=== PATIENT | male | born 1975 | race Caucasian/White ===

== ENCOUNTER 2022-03-21 10:37 | Inpatient (IN) | payer OTHER ==
[2022-03-21 11:34] VITALS: BMI 20.6
[2022-03-21] MEDS ORDERED: MAG HYDROX/AL HYDROX/SIMETH 30 ML UNIT-DOSE CUP PO PRN (13:24)
[2022-03-21] MEDS ORDERED: MAGNESIUM CITRATE 300 ML BOTTLE PO PRN (13:24)
[2022-03-21] MEDS ORDERED: LOPERAMIDE HCL 2 MG CAPSULE PO PRN (13:24)
[2022-03-21] MEDS ORDERED: NALOXONE HCL (KLOXXADO) 8 MG SPRAY NS PRN (13:24)
[2022-03-21] MEDS ORDERED: ONDANSETRON *ODT* 4 MG TABLET SL PRN (13:24)
[2022-03-21] MEDS ORDERED: BISMUTH SUBSALICYLATE 262 MG/15 ML BTL PO PRN (13:24)
[2022-03-21] MEDS ORDERED: BENZOCAINE/MENTHOL (CHLORASEPTIC ) LOZENGE MM PRN (13:24)
[2022-03-21] MEDS ORDERED: IBUPROFEN 400 MG TABLET (FP) PO PRN (13:24)
[2022-03-21] MEDS ORDERED: ACETAMINOPHEN 325 MG TABLET (FP) PO PRN ×2 (13:24)
[2022-03-21] MEDS ORDERED: IBUPROFEN 600 MG TABLET (FP) PO PRN (13:24)
[2022-03-21] MEDS ORDERED: MAGNESIUM HYDROX 2400MG/30ML ORAL SUSPENSION 30 ML CUP PO PRN (13:24)
[2022-03-21] MEDS ORDERED: chlordiazePOXIDE HCL 25 MG CAPSULE PO PRN (13:24)
[2022-03-21] MEDS ORDERED: DICYCLOMINE HCL 10 MG CAPSULE PO PRN (13:24)
[2022-03-21] MEDS: hydrOXYzine PAMOATE 25 MG CAPSULE (FP) PO PRN (15:08)
[2022-03-21] MEDS: METHOCARBAMOL 500 MG TABLET PO PRN (15:08)
[2022-03-21] MEDS: BACITRACIN 15 GM TUBE TOPICAL OINTMENT TP SCH ×2 (15:08→22:21)
[2022-03-21] MEDS: chlordiazePOXIDE HCL 25 MG CAPSULE PO SCH ×2 (17:56→22:18)
[2022-03-21] MEDS: THIAMINE HCL 100 MG TABLET (FP) PO SCH (22:17)
[2022-03-21] MEDS: MELATONIN 5 MG TABLETS PO SCH (22:17)
[2022-03-22] MEDS: chlordiazePOXIDE HCL 25 MG CAPSULE PO SCH ×4 (06:05→22:45)
[2022-03-22 10:11] LABS: HEMATOCRIT 44.6 % (35.4-49); HEMOGLOBIN 14.5 GM/dL (11.7-16.9); MCH 29.8 pg (25.7-33.7); MCHC 32.5 g/dl (32.0-35.9); MEAN CELL VOLUME 91.7 fl (80-96); MEAN PLT VOLUME 9.2 fl (7.5-11.1); PLATELET COUNT 216 10^3/uL (134-434); RBC 4.86 M/mm3 (4.00-5.60); RDW 15.6 % (11.9-15.9); WHITE BLOOD COUNT 7.5 K/mm3 (4.0-10.0)
[2022-03-22 10:14] LABS: ALBUMIN 3.5 g/dl (3.4-5.0); CALCIUM 9.4 mg/dL (8.5-10.1)
[2022-03-22 10:15] LABS: SICKLE CELL SCREEN NEGATIVE (NEGATIVE)
[2022-03-22 10:20] LABS: BLOOD UREA NITROGEN 17.6 mg/dL (7-18); TOT PROT 6.7 g/dl (6.4-8.2)
[2022-03-22] MEDS: PRENATAL VITAMINS W/ FOLIC ACID TABLET (FP) PO SCH (10:35)
[2022-03-22] MEDS: BACITRACIN 15 GM TUBE TOPICAL OINTMENT TP SCH ×2 (10:38→22:46)
[2022-03-22] MEDS ORDERED: FLU VACC QS2022-23(6MOS UP)/PF 60 MCG/0.5 ML SYRINGE IM ONE (12:00)
[2022-03-22] MEDS: hydrOXYzine PAMOATE 25 MG CAPSULE (FP) PO PRN ×2 (17:42→22:45)
[2022-03-22 17:57] LABS: HIV INTERPRETATION NEGATIVE (NEGATIVE)
[2022-03-22] MEDS: NICOTINE 10 MG CARTRIDGE (INHALER) IH PRN (20:08)
[2022-03-22] MEDS: METHOCARBAMOL 500 MG TABLET PO PRN (22:46)
[2022-03-22] MEDS: THIAMINE HCL 100 MG TABLET (FP) PO SCH (22:46)
[2022-03-22] MEDS: MELATONIN 5 MG TABLETS PO SCH (22:46)
[2022-03-23] MEDS: chlordiazePOXIDE HCL 25 MG CAPSULE PO SCH ×4 (05:53→22:35)
[2022-03-23] MEDS: PRENATAL VITAMINS W/ FOLIC ACID TABLET (FP) PO SCH (10:56)
[2022-03-23] MEDS: NICOTINE 10 MG CARTRIDGE (INHALER) IH PRN (10:57)
[2022-03-23] MEDS: METHOCARBAMOL 500 MG TABLET PO PRN ×2 (11:02→17:58)
[2022-03-23] MEDS: BACITRACIN 15 GM TUBE TOPICAL OINTMENT TP SCH (11:03)
[2022-03-23] MEDS: BACITRACIN 0.9 GM PACKET TP SCH ×2 (11:20→23:35)
[2022-03-23] MEDS ORDERED: NICOTINE POLACRILEX 4 MG GUM BUC PRN (11:46)
[2022-03-23] MEDS: NICOTINE 21 MG/24 HOURS TOPICAL PATCH TD SCH (11:58)
[2022-03-23] MEDS: hydrOXYzine PAMOATE 25 MG CAPSULE (FP) PO PRN ×2 (17:58→22:36)
[2022-03-23] MEDS: THIAMINE HCL 100 MG TABLET (FP) PO SCH (22:35)
[2022-03-23] MEDS: MELATONIN 5 MG TABLETS PO SCH (22:35)
[2022-03-24] MEDS ORDERED: chlordiazePOXIDE HCL 10 MG CAPSULE PO PRN
[2022-03-24] MEDS: chlordiazePOXIDE HCL 10 MG CAPSULE PO SCH ×2 (05:40→10:11)
[2022-03-24 06:07] VITALS: RESP 18
[2022-03-24] MEDS: PRENATAL VITAMINS W/ FOLIC ACID TABLET (FP) PO SCH (10:10)
[2022-03-24] MEDS: BACITRACIN 0.9 GM PACKET TP SCH (10:12)
[2022-03-24] MEDS: NICOTINE 21 MG/24 HOURS TOPICAL PATCH TD SCH (10:13)
[2022-03-24] MEDS ORDERED: BACITRACIN 15 GM TUBE TOPICAL OINTMENT TP SCH (11:50)
[2022-03-24 13:12] VITALS: BP 114/77; PULSE 77; TEMP 98
[2022-03-24 14:49] LABS: URINE APPEARANCE CLOUDY; URINE BILIRUBIN NEGATIVE (NEGATIVE); URINE COLOR YELLOW; URINE GLUCOSE (UA) NEGATIVE (NEGATIVE); URINE KETONE NEGATIVE (NEGATIVE); URINE LEUK ESTERASE NEGATIVE (NEGATIVE); URINE NITRITE NEGATIVE (NEGATIVE); URINE PROTEIN NEGATIVE (NEGATIVE); URINE UROBILINOGEN 0.2 mg/dL (0.2-1.0)
[2022-03-25] MEDS ORDERED: chlordiazePOXIDE HCL 10 MG CAPSULE PO SCH (05:00)
[2022-03-26] MEDS ORDERED: chlordiazePOXIDE HCL 10 MG CAPSULE PO ONE (05:00)
== END 2022-03-24 13:41 | disposition left against medical advice (07) | DRG 770 ==
LOC: YASAS 10:37 → Y6N 13:13
PROVIDERS: ADMIT Allergy & Immunology; ATTEND Surgery
PROC: HZ2ZZZZ Detoxification Services for Substance Abuse Treatment (ICD-10-PCS; principal; 2022-03-21)
DX: F10.230 Alcohol dependence with withdrawal, uncomplicated (principal); F11.10 Opioid abuse, uncomplicated; F16.20 Hallucinogen dependence, uncomplicated; F12.20 Cannabis dependence, uncomplicated; F17.210 Nicotine dependence, cigarettes, uncomplicated; F19.24 Other psychoactive substance dependence with psychoactive substance-induced mood disorder; F99 Mental disorder, not otherwise specified; M54.50 Low back pain, unspecified; G89.29 Other chronic pain; S09.90XA Unspecified injury of head, initial encounter; W18.39XA Other fall on same level, initial encounter; Y92.238 Other place in hospital as the place of occurrence of the external cause; Z56.0 Unemployment, unspecified; Z59.00 Homelessness unspecified
CPT/HCPCS: 36415; 71046-TC-FY; 80053; 81003; 82962; 85027; 85660; 86780; 87389; 87811; C9803-CS; U0003; U0005